=== PATIENT | male | born 1965 | race Caucasian/White ===

== ENCOUNTER 2021-03-12 11:54 | Observation (INO) | payer MEDICARE ==
[~2021-03-12] VITALS: Ht 193 cm; Wt 147.0 kg
[2021-03-12] VITALS (11 sets, daily range): BP systolic 107–123; BP diastolic 58–79
--- NOTE | 2021-03-12 12:33 | NUR ---
PT ESCORTED VIA WHEELCHAIR TO ROOM 9 FOR EVALUATION
[2021-03-12 12:47] LABS: HEMATOCRIT 23.1 % (39.0-50.0); IMMATURE GRANULOCYTES 0.1 % (0.0-5.0); MEAN CELL VOLUME 99.1 fL CALC (80.0-100.0); MEAN CORPUSCULAR HGB CONC 30.3 g/dL CAL (32.0-36.0); NEUT# 5.99 thou/uL (1.82-7.42); RED BLOOD COUNT 2.33 mill/uL (4.70-6.10); RED CELL DISTRI WIDTH 17.7 % (11.5-15.5)
[2021-03-12 12:59] LABS: ALBUMIN 3.9 g/dL (3.2-5.0); BILIRUBIN, TOTAL 0.7 mg/dL (0.0-1.4); CREATININE 4.8 mg/dL (0.7-1.3); MAGNESIUM 2.3 mg/dL (1.6-2.3); POTASSIUM 4.2 mmol/l (3.5-5.1); TOTAL PROTEIN 7.5 g/dL (6.3-8.2)
[2021-03-12 13:01] LABS: ACT PARTIAL THROMBO TIME 32.4 SECONDS (20.0-32.5); INTERNATIONAL NORMALIZED RATIO 1.1 RATIO (0.7-1.3); PROTHROMBIN TIME 11.6 SECONDS (9.0-12.5)
[2021-03-12] MEDS ORDERED: PLAVIX75 MG PO (13:07)
[2021-03-12] MEDS ORDERED: NORVASC5 M1 PO (13:08)
[2021-03-12] MEDS ORDERED: OMEPRAZOLE20 MG PO (13:09)
[2021-03-12] MEDS ORDERED: ASPIRIN 81 LOW81 MG (13:10)
[2021-03-12] MEDS ORDERED: NITROSTAT0.4 MG SL (13:11)
[2021-03-12] MEDS ORDERED: ELIQUIS5 MG PO (13:12)
[2021-03-12] MEDS ORDERED: METOPROLOL100 M1 PO (13:13)
[2021-03-12] MEDS ORDERED: TORSEMIDE20 M1 PO (13:13)
[2021-03-12] MEDS ORDERED: ISOSORB DIN20 MG PO (13:14)
[2021-03-12] MEDS ORDERED: METHADOSE10 MG/ML PO (14:23)
--- NOTE | 2021-03-12 17:46 | NUR ---
REPORT GIVEN TO PRIYANKA ICU 6
[2021-03-12 18:07] LABS: URINE BILIRUBIN - DIPSTICK NEGATIVE (NEGATIVE); URINE BLOOD DIPSTICK SMALL (NEGATIVE); URINE COLOR YELLOW; URINE GLUCOSE - DIPSTICK NEGATIVE (NEGATIVE); URINE KETONE NEGATIVE (NEGATIVE); URINE LEUK ESTERASE NEGATIVE (NEGATIVE); URINE NITRITE - DIPSTICK NEGATIVE (Negative); URINE PH 5.5 (4.5-8.0); URINE PROTEIN - DIPSTICK NEGATIVE (NEG-TRACE); URINE SPECIFIC GRAVITY 1.015; URINE UROBILINOGEN - DIPSTICK 0.2 E.U./dL (0.2)
--- NOTE | 2021-03-12 19:30 | NUR ---
admission assessment completed. denies distress. desk monitor shows sinus rhythm. #20 lfa saline lock. #20 rfa ns infusing @ kvo. po fluids restricted. voids per urinal. history obtained per pt & er record. fall precautions cont.
--- NOTE | 2021-03-12 19:55 | NUR ---
#2 unit blood began as ordered.
--- NOTE | 2021-03-12 22:01 | NUR ---
#2 unit blood infused.
--- NOTE | 2021-03-12 23:55 | NUR ---
eyes closed. no distress. social work therapist shows sinus kristine hr 50. cpap cont.
[2021-03-13 02:00] VITALS: BP 90/42
--- NOTE | 2021-03-13 02:00 | NUR ---
resting quietly. resps even & unlabored. cpap cont.
--- NOTE | 2021-03-13 03:30 | NUR ---
lab here. blood drawn.
[2021-03-13 04:00] VITALS: BP 117/72
[2021-03-13 04:15] LABS: HEMATOCRIT 25.2 % (39.0-50.0); HEMOGLOBIN 7.8 g/dl (14.0-18.0); IMMATURE GRANULOCYTES 0.1 % (0.0-5.0); MEAN CELL VOLUME 96.6 fL CALC (80.0-100.0); MEAN CORPUSCULAR HGB 29.9 pG CALC (26.0-32.0); NEUT# 6.07 thou/uL (1.82-7.42); RED BLOOD COUNT 2.61 mill/uL (4.70-6.10); RED CELL DISTRI WIDTH 18.4 % (11.5-15.5)
[2021-03-13 04:51] LABS: CREATININE 4.5 mg/dL (0.7-1.3); MAGNESIUM 2.2 mg/dL (1.6-2.3)
--- NOTE | 2021-03-13 06:00 | NUR ---
eyes closed. cpap conts.
[2021-03-13 06:16] VITALS: BP 118/70
[2021-03-13 07:00] VITALS: BP 119/72
--- NOTE | 2021-03-13 07:48 | NUR ---
PT REPORT RECEIVED, PT WAS RESTING QUIETLY WITH BIPAP ON, DENIES ANY COMPLAINTS AT THIS TIME, AWAKE/ALERT/O X3, VITAL SIGNS STABLE. STATES FEELS MUCH BETTER.
[2021-03-13 08:00] VITALS: BP 129/79
--- NOTE | 2021-03-13 08:40 | NUR ---
PT ADVISED DOCTOR THAT HE NEEDED TO BE DISCHARGED BY 930 TO MAKE IT TO HIS APPTS FOR HIS REFILL OF METHADONE. EXamined pt and decided pt could be discharge today. medications will be given and tetnus and pneumonia shots given. iv's d/c and discharge instructions given and pt voices understanding. pt to er waiting room per w/c , mother here for pickup
[2021-03-13 09:46] VITALS: BP 128/75
== END 2021-03-13 10:00 | disposition home or self-care (01) ==
LOC: ED 11:54 → ED-I 13:50 → ED 14:10 → ICU 14:11
PROVIDERS: ADMIT Internal Medicine; ATTEND Internal Medicine
PROC: 30233N1 Transfusion of Nonautologous Red Blood Cells into Peripheral Vein, Percutaneous Approach (ICD-10-PCS; principal; 2021-03-12)
PROC: 30233N1 Transfusion of Nonautologous Red Blood Cells into Peripheral Vein, Percutaneous Approach (ICD-10-PCS; 2021-03-12)
PROC: 3E02340 Introduction of Influenza Vaccine into Muscle, Percutaneous Approach (ICD-10-PCS; 2021-03-13)
PROC: 3E0234Z Introduction of Serum, Toxoid and Vaccine into Muscle, Percutaneous Approach (ICD-10-PCS; 2021-03-13)
DX: D64.9 Anemia, unspecified (principal); I13.0 Hypertensive heart and chronic kidney disease with heart failure and stage 1 through stage 4 chronic kidney disease, or unspecified chronic kidney disease; I50.9 Heart failure, unspecified; N18.9 Chronic kidney disease, unspecified; J44.9 Chronic obstructive pulmonary disease, unspecified; J96.11 Chronic respiratory failure with hypoxia; I25.10 Atherosclerotic heart disease of native coronary artery without angina pectoris; G47.33 Obstructive sleep apnea (adult) (pediatric); F11.20 Opioid dependence, uncomplicated; Z23 Encounter for immunization; Z95.5 Presence of coronary angioplasty implant and graft; Z20.822 Contact with and (suspected) exposure to COVID-19; Z99.81 Dependence on supplemental oxygen
CPT/HCPCS: P9016

== ENCOUNTER 2021-04-07 16:40 | Emergency (ER) | payer MEDICARE ==
[~2021-04-07] VITALS: Ht 193 cm; Wt 145.0 kg
[~2021-04-07 16:40] MED LIST: ASPIRIN 81 LOW81 MG; ELIQUIS5 MG PO; ISOSORB DIN20 MG PO; METHADOSE10 MG/ML PO; METOPROLOL100 M1 PO; NITROSTAT0.4 MG SL; NORVASC5 M1 PO; OMEPRAZOLE20 MG PO; PLAVIX75 MG PO; TORSEMIDE20 M1 PO
[2021-04-07 18:06] LABS: HEMATOCRIT 25.8 % (39.0-50.0); HEMOGLOBIN 7.9 g/dl (14.0-18.0); IMMATURE GRANULOCYTES 0.2 % (0.0-5.0); MEAN CELL VOLUME 99.6 fL CALC (80.0-100.0); MEAN CORPUSCULAR HGB 30.5 pG CALC (26.0-32.0); MEAN CORPUSCULAR HGB CONC 30.6 g/dL CAL (32.0-36.0); NEUT# 10.24 thou/uL (1.82-7.42); RED BLOOD COUNT 2.59 mill/uL (4.70-6.10); RED CELL DISTRI WIDTH 19.4 % (11.5-15.5)
[2021-04-07 18:13] LABS: ALBUMIN 3.9 g/dL (3.2-5.0); BILIRUBIN, TOTAL 0.9 mg/dL (0.0-1.4); POTASSIUM 4.2 mmol/l (3.5-5.1); TOTAL PROTEIN 7.9 g/dL (6.3-8.2)
[2021-04-07 18:26] LABS: CREATININE 5.1 mg/dL (0.7-1.3)
[2021-04-07 19:48] VITALS: BP 130/62
[2021-04-07] MEDS ORDERED: TERBINAFINE250 M1 PO (20:20)
[2021-04-07] MEDS ORDERED: CEPHALEXIN500 M1 PO (20:21)
[2021-04-07] MEDS ORDERED: [UNRECOGNIZED DRUG - OTHER] (20:27)
[2021-04-07] MEDS ORDERED: MUPIROCIN21 TOP (20:29)
[2021-04-07 20:48] VITALS: BP 127/81
[2021-04-07 21:48] VITALS: BP 120/74
[2021-04-07 22:00] VITALS: BP 120/74
== END 2021-04-07 22:00 | disposition home or self-care (01) ==
LOC: ED 16:40
PROVIDERS: Family Medicine
PROC: 30233N1 Transfusion of Nonautologous Red Blood Cells into Peripheral Vein, Percutaneous Approach (ICD-10-PCS; principal; 2021-04-07)
DX: D64.9 Anemia, unspecified (principal); R19.5 Other fecal abnormalities; I13.0 Hypertensive heart and chronic kidney disease with heart failure and stage 1 through stage 4 chronic kidney disease, or unspecified chronic kidney disease; I50.9 Heart failure, unspecified; E11.22 Type 2 diabetes mellitus with diabetic chronic kidney disease; N18.9 Chronic kidney disease, unspecified; J44.9 Chronic obstructive pulmonary disease, unspecified; Z95.5 Presence of coronary angioplasty implant and graft; Z89.421 Acquired absence of other right toe(s)
CPT/HCPCS: P9016; S0164

== ENCOUNTER → 2021-04-08 09:39 | Emergency (ER) | payer MEDICARE ==
[~2021-04-08 09:39] MED LIST changes: +CEPHALEXIN500 M1 PO; +MUPIROCIN21 TOP; +TERBINAFINE250 M1 PO; +[UNRECOGNIZED DRUG - OTHER]
== END | disposition left against medical advice (07) ==
LOC: ED 09:39 → LWOBS 09:39
DX: Z53.21 Procedure and treatment not carried out due to patient leaving prior to being seen by health care provider (principal)

== ENCOUNTER 2021-05-21 10:34 | Emergency (ER) | payer MEDICARE ==
[~2021-05-21] VITALS: Ht 193 cm; Wt 136.3 kg
[2021-05-21 11:23] LABS: HEMATOCRIT 31.1 % (39.0-50.0); IMMATURE GRANULOCYTES 0.1 % (0.0-5.0); MEAN CELL VOLUME 98.1 fL CALC (80.0-100.0); MEAN CORPUSCULAR HGB 31.2 pG CALC (26.0-32.0); MEAN CORPUSCULAR HGB CONC 31.8 g/dL CAL (32.0-36.0); NEUT# 6.76 thou/uL (1.82-7.42); RED BLOOD COUNT 3.17 mill/uL (4.70-6.10)
[2021-05-21 11:25] LABS: HEMOGLOBIN 9.9 g/dl (14.0-18.0)
[2021-05-21 11:43] LABS: ALBUMIN 3.8 g/dL (3.2-5.0); BILIRUBIN, TOTAL 0.3 mg/dL (0.0-1.4); CREATININE 2.4 mg/dL (0.7-1.3); POTASSIUM 3.9 mmol/l (3.5-5.1); TOTAL PROTEIN 7.8 g/dL (6.3-8.2)
[2021-05-21] MEDS ORDERED: KEFLEX500 MG PO (12:25)
[2021-05-21] MEDS ORDERED: BACTRIM DS1 TAB PO (12:25)
[2021-05-21 13:06] VITALS: BP 134/80
== END 2021-05-21 13:15 | disposition home or self-care (01) ==
LOC: ED 10:34
PROVIDERS: Emergency Medicine
DX: L03.031 Cellulitis of right toe (principal); L03.115 Cellulitis of right lower limb; I10 Essential (primary) hypertension; Z95.5 Presence of coronary angioplasty implant and graft; Z98.84 Bariatric surgery status; Z89.421 Acquired absence of other right toe(s)

== ENCOUNTER 2021-12-16 10:50 | Emergency (ER) | payer MEDICARE ==
[~2021-12-16] VITALS: Ht 193 cm; Wt 127.3 kg
[~2021-12-16 10:50] MED LIST changes: +BACTRIM DS1 TAB PO; +KEFLEX500 MG PO
[2021-12-16 12:45] LABS: HEMATOCRIT 34.5 % (39.0-50.0); HEMOGLOBIN 11.2 g/dl (14.0-18.0); IMMATURE GRANULOCYTES 0.4 % (0.0-5.0); MEAN CELL VOLUME 98.3 fL CALC (80.0-100.0); MEAN CORPUSCULAR HGB 31.9 pG CALC (26.0-32.0); MEAN CORPUSCULAR HGB CONC 32.5 g/dL CAL (32.0-36.0); NEUT# 9.81 thou/uL (1.82-7.42); RED BLOOD COUNT 3.51 mill/uL (4.70-6.10); RED CELL DISTRI WIDTH 14.4 % (11.5-15.5)
[2021-12-16 12:59] LABS: ALBUMIN 4.2 g/dL (3.2-5.0); CREATININE 2.6 mg/dL (0.7-1.3); POTASSIUM 3.9 mmol/l (3.5-5.1)
[2021-12-16 13:02] LABS: BILIRUBIN, TOTAL 0.5 mg/dL (0.0-1.4)
[2021-12-16] MEDS ORDERED: PREDNISONE10 MG PO (14:22)
[2021-12-16 14:55] VITALS: BP 159/95
== END 2021-12-16 14:56 | disposition home or self-care (01) ==
LOC: ED 10:50
PROVIDERS: Nurse Practitioner
DX: M25.572 Pain in left ankle and joints of left foot (principal); M25.571 Pain in right ankle and joints of right foot; I10 Essential (primary) hypertension; Z95.5 Presence of coronary angioplasty implant and graft; M79.661 Pain in right lower leg; M79.662 Pain in left lower leg; Z79.01 Long term (current) use of anticoagulants; Z79.891 Long term (current) use of opiate analgesic

== ENCOUNTER 2022-02-13 10:52 | Inpatient (IN) | payer MEDICARE ==
[2022-02-13] VITALS (23 sets, daily range): BP systolic 130–149; BP diastolic 78–101
[~2022-02-13] VITALS: Ht 193 cm; Wt 160.8 kg
[~2022-02-13 10:52] MED LIST changes: +PREDNISONE10 MG PO
--- NOTE | 2022-02-13 10:55 | NUR ---
PATIENT ESCORTED BACK TO ROOM IN NAD. PROVIDER NOTIFIED OF PATIENT STATUS.
[2022-02-13 11:39] LABS: HEMATOCRIT 31.8 % (39.0-50.0); HEMOGLOBIN 10.3 g/dl (14.0-18.0); IMMATURE GRANULOCYTES 0.6 % (0.0-5.0); MEAN CELL VOLUME 96.1 fL CALC (80.0-100.0); MEAN CORPUSCULAR HGB 31.1 pG CALC (26.0-32.0); MEAN CORPUSCULAR HGB CONC 32.4 g/dL CAL (32.0-36.0); NEUT# 10.63 thou/uL (1.82-7.42); RED BLOOD COUNT 3.31 mill/uL (4.70-6.10); RED CELL DISTRI WIDTH 16.1 % (11.5-15.5)
[2022-02-13 11:53] LABS: ALBUMIN 3.8 g/dL (3.2-5.0); BILIRUBIN, TOTAL 0.3 mg/dL (0.0-1.4); CREATININE 2.5 mg/dL (0.7-1.3); POTASSIUM 3.3 mmol/l (3.5-5.1); TOTAL PROTEIN 7.2 g/dL (6.3-8.2)
[2022-02-13] MEDS ORDERED: PREDNISONE10 MG PO (13:18)
[2022-02-13] MEDS ORDERED: ELIQUIS5 MG PO (13:19)
[2022-02-13] MEDS ORDERED: LOSARTAN POTASS25 MG PO (13:21)
[2022-02-13] MEDS ORDERED: ISOSORB MONO30 MG PO (13:22)
[2022-02-13] MEDS ORDERED: OMEPRAZOLE DR40 MG (13:23)
[2022-02-13] MEDS ORDERED: CALCITRIOL0.25 MC1 PO (13:24)
--- NOTE | 2022-02-13 14:03 | NUR ---
PT HAS HAD URINE OUTPUT OF 1400 Ml'S TO URINAL.
--- NOTE | 2022-02-13 15:37 | NUR ---
PT HAS HAD URINE OUTPUT OF 500 ML'S.
--- NOTE | 2022-02-13 17:00 | NUR ---
PT HAD URINE OUTPUT OF 425 ML'S.
--- NOTE | 2022-02-13 17:25 | NUR ---
Admission Note Report Given to: EVA CARTER Transported by: Stretcher Transported with: Nurse Patent IV O2 @ 2L/min via nc Prepress Operator Location: [facility] [place] 268
--- NOTE | 2022-02-13 17:55 | NUR ---
PT RESTING IN SEMI FOWLERS POSITION.ASSESSMENT AND VS COMPLETED. PT HEART RHYTHM ON TELE RESPIRATIONS ON 2L OF OXYGEN. IV SITE TO LFA. S.L. PT BOWEL SOUNDS ACTIVE. PT EDEMA TO LOWER EXTREMITIES. PT C/O OF HUNGER ORDERS TO BE PUT IN BY PROVIDER. PT DENIES ADDITIONAL NEEDS AT THE TIME ALL SAFETY PRECAUTIONS IN PLACE CALL LIGHT INREACH.
--- NOTE | 2022-02-13 19:00 | NUR ---
BEDSIDE SHIFT REPORT COMPLETE. PATIENT LAYING IN BED WATCHING TV.
--- NOTE | 2022-02-13 20:13 | NUR ---
PATIENT ALERT AND ORIENTED X4. ASSESSMENT COMPLETE. RESTING IN BED WATCHING TV. C/O BACK AND NECK PAIN 08/06. NO FURTHER CONCERNS EXPRESSED. CALL LIGHT WITHIN REACH.
--- NOTE | 2022-02-13 20:54 | NUR ---
PATIENT C/O BACK AND NECK PAIN 08/06, PHYSICIAN NOTIFIED. TRAMADOL 50MG ORDERED AND PRESENTED TO PATIENT, PATIENT REFUSED MEDICATION.
[2022-02-14] VITALS (8 sets, daily range): BP systolic 117–150; BP diastolic 64–91
--- NOTE | 2022-02-14 00:45 | NUR ---
RESTING QUIETLY EYES CLOSED, CPAP IN USE. NO DISTRESS NOTED. CALL LIGHT WITHIN REACH.
[2022-02-14 05:23] LABS: HEMATOCRIT 30.9 % (39.0-50.0); IMMATURE GRANULOCYTES 0.6 % (0.0-5.0); MEAN CELL VOLUME 97.5 fL CALC (80.0-100.0); MEAN CORPUSCULAR HGB 31.5 pG CALC (26.0-32.0); MEAN CORPUSCULAR HGB CONC 32.4 g/dL CAL (32.0-36.0); NEUT# 8.24 thou/uL (1.82-7.42); RED BLOOD COUNT 3.17 mill/uL (4.70-6.10); RED CELL DISTRI WIDTH 16.1 % (11.5-15.5)
[2022-02-14 05:39] LABS: ALBUMIN 3.4 g/dL (3.2-5.0); BILIRUBIN, TOTAL 0.4 mg/dL (0.0-1.4); CREATININE 2.4 mg/dL (0.7-1.3); POTASSIUM 3.6 mmol/l (3.5-5.1); TOTAL PROTEIN 6.3 g/dL (6.3-8.2)
[2022-02-14 06:11] LABS: TSH, 3RD GENERATION 0.69 uIU/mL (0.47 - 4.68)
--- NOTE | 2022-02-14 07:00 | NUR ---
RECEIVE REPORT FROM CLAUDIA CARTER.
--- NOTE | 2022-02-14 08:00 | NUR ---
PATIENT ALERT AND ORIENTED X3. RESTING STABLE IN BED AT THIS TIME. ASSESSMENTE HEAD-TO TOE COMPLETE. PATIENT IS EDUCATED ABOUD MEDICATIONS, PAIN MANAGEMENT AND NURSING PLAN FOR TODAY. PATIENT REFER UNSERSTAND. SAFETY AND FALL PRECAUTIONS IN PLACE. CALL LIGHT WITHIN IN REACH. BEFORE HE LEFT OR THE
--- NOTE | 2022-02-14 11:18 | NUR ---
CONFIRMED A PHYSICIAN CONSULT WITH THE [facility]. I SPOKE WITH HUANG AT 1118 HRS.
--- NOTE | 2022-02-14 11:30 | NUR ---
Discharge instructions given. Patient verbalizes understanding of same. Discharged in stable condition via Wheelchair to Home with staff. All belongings sent with pt.
--- NOTE | 2022-02-14 12:28 | NUR ---
PT RESTING IN BED. STATES NO PAIN. TELE MONITOR IN PLACE. CONTINOUS MONITORING FALL/SAFTEY PRECAUTION IN PLACE, CALL LIGHT WITHIN REACH.
--- NOTE | 2022-02-14 16:39 | NUR ---
Pt in bed watching tv. A&O x 3. Lung sounds clear and unlabored breathing. Tylenol given for fever later re-assess pt states fever came down. Will continue to monitor. bed alarm on for fall precautions.
--- NOTE | 2022-02-14 19:17 | NUR ---
BEDSIDE SHIFT REPORT COMPLETE. PATIENT RESTING QUIETLY. CALL LIGHT WITHIN REACH.
--- NOTE | 2022-02-14 20:27 | NUR ---
SITTING UP IN BED WATCHING TV. ASSESSMENT COMPLETE. NO DISTRESS NOTED AT THIS TIME. SCHEDULED DOSE OF MORPHINE GIVEN FOR PAIN. CALL LIGHT WITHIN REACH INSTRUCTED TO CALL FOR ASSISTANCE.
[2022-02-15] VITALS: BP 144/86
--- NOTE | 2022-02-15 00:36 | NUR ---
RESTING, EYES CLOSED; CPAP IN USE. NO DISTRESS NOTED, CALL LIGHT WITHIN REACH.
[2022-02-15 04:00] VITALS: BP 144/94
--- NOTE | 2022-02-15 04:34 | NUR ---
RESTING IN BED, CPAP IN PLACE. DENIES PAIN AT THIS TIME. NO DISTRESS NOTED.
[2022-02-15 05:09] LABS: HEMOGLOBIN 9.5 g/dl (14.0-18.0); IMMATURE GRANULOCYTES 0.5 % (0.0-5.0); MEAN CELL VOLUME 98.4 fL CALC (80.0-100.0); MEAN CORPUSCULAR HGB 31.1 pG CALC (26.0-32.0); MEAN CORPUSCULAR HGB CONC 31.7 g/dL CAL (32.0-36.0); NEUT# 6.36 thou/uL (1.82-7.42); RED BLOOD COUNT 3.05 mill/uL (4.70-6.10); RED CELL DISTRI WIDTH 16.1 % (11.5-15.5)
[2022-02-15 05:30] LABS: ALBUMIN 3.5 g/dL (3.2-5.0); CREATININE 2.8 mg/dL (0.7-1.3); POTASSIUM 3.5 mmol/l (3.5-5.1); TOTAL PROTEIN 6.6 g/dL (6.3-8.2)
[2022-02-15 05:32] LABS: BILIRUBIN, TOTAL 0.1 mg/dL (0.0-1.4)
[2022-02-15 06:30] VITALS: BP 141/75
--- NOTE | 2022-02-15 07:45 | NUR ---
PT IS SITTING UP UCHE BED, WATCHING TV. PT IS A&OX3, PT FOLLOWS COMMANDS AND HAS NO C/O AT THIS TIME. PT IS AMBULATORY WITH STEADY GAIT, PT HAS NOTATED EDEMA TO BLE, PT EDUCATED TO ELEVATE WHEN NOT WALKING OOB IN ROOM. NAD, VS ASSESSED. PT HAS CALL LIGHT NEAR AND WILLM MAKE HIS NEEDS KNOWN, WILL CONTINUE TO MONITOR.
[2022-02-15 10:30] VITALS: BP 126/75
--- NOTE | 2022-02-15 12:45 | NUR ---
PT IS SITTING UP ON SIDE OF BED, PT HAS NO COMPLAINTS AT THIS TIME. PT HAS CALL LIGHT NEAR AND WILL CALL IF IN NEED. ALL PT NEEDS HAVE BEEN ADDRESSED.
[2022-02-15 14:43] VITALS: BP 148/95
[2022-02-15 19:14] VITALS: BP 149/92
--- NOTE | 2022-02-15 19:25 | NUR ---
RECIEVED REPORT ON PT. PT IN BED SITTING IN HIGH FOWLERS POSITION. DENIES ANY PAIN OR DISCOMFORT. OXYGEN IN PLACE VIA NASAL CANULA. PT WATCHING VIDEOS ON THEIR LAPTOP. ALERT AND ORIENTATED X3. WOUND IS DRESSED WITH SOCKS OVER DRESSINGS. PT DENIES ANY NEEDS AT THIS TIME. ALL SAFETY PRECAUTIONS IN PLACE AT THIS TIME
[2022-02-16] VITALS (10 sets, daily range): BP systolic 131–159; BP diastolic 80–96
--- NOTE | 2022-02-16 00:15 | NUR ---
PT IN BED SLEEPING. IV SITE PATENT. DENIES ANY NEEDS. TELE IN PLACE. AL SAFETY PRECAUTIONS IN PLACE AT THIS TIME
--- NOTE | 2022-02-16 04:00 | NUR ---
PT IN BED SLEEPING. BREATHING APPEARS EVEN AND NON LABORED. DENIES ANY NEEDS AT THIS TIME. O2 AND TELE IN PLACE AT THIS TIME. ALL SAFETY PRECAUTIONS IN PLACE AT THIS TIME
[2022-02-16 05:15] LABS: BASO% 0.3 % (0-3); EOS% 1.5 % (0-8); HEMATOCRIT 28.5 % (39.0-50.0); HEMOGLOBIN 9.2 g/dl (14.0-18.0); IMMATURE GRANULOCYTES 0.7 % (0.0-5.0); LYMPH% 13.9 % (15-41); MEAN CELL VOLUME 96.9 fL CALC (80.0-100.0); MEAN CORPUSCULAR HGB 31.3 pG CALC (26.0-32.0); MEAN CORPUSCULAR HGB CONC 32.3 g/dL CAL (32.0-36.0); MONO% 4.8 % (2-13); NEUT# 5.9 thou/uL (1.82-7.42); NEUT% 78.8 % (42-76); RED BLOOD COUNT 2.94 mill/uL (4.70-6.10); RED CELL DISTRI WIDTH 15.8 % (11.5-15.5)
[2022-02-16 05:32] LABS: ALBUMIN 3.3 g/dL (3.2-5.0); CREATININE 2.7 mg/dL (0.7-1.3); POTASSIUM 3.4 mmol/l (3.5-5.1); TOTAL PROTEIN 6.4 g/dL (6.3-8.2)
[2022-02-16 05:39] LABS: BILIRUBIN, TOTAL 0.3 mg/dL (0.0-1.4)
--- NOTE | 2022-02-16 07:50 | NUR ---
PT RESTING IN HIGH FOWLERS POSITION. ASSESSMENT AND VS COMPLETED HEART RHYTHM ON TELE. RESPIRATIONS ON 2L NC.PT IV SITE NOTED TO RFA. PT DENIES ADDITIONAL NEEDS AT THE TIME ALL SAFETY PRECAUTIONS IN PLACE CALL LIGHT INREACH.
--- NOTE | 2022-02-16 16:00 | NUR ---
PT RESTING PT DENIES ADDITIONAL NEEDS AT THE TIME.
--- NOTE | 2022-02-16 18:45 | NUR ---
RECEIVED REPORT FROM JEANMARIE LARSEN.
--- NOTE | 2022-02-16 20:05 | NUR ---
PT SITTING ON SIDE OF BED, TALKING ON CELLPHONE: A&O X3. EVEN AND UNLABORED RESPIRATIONS; DIMINISHED LUNG SOUNDS THROUGHTOUT. O2 @ 2L VIA NASAL CANNULA IN PLACE. TELEMETRY IN PLACE. IV SITE FLUSHED: #18G LEFT FA, HEALTHY AND PATENT. ACTIVE BOWEL SOUNDS X4 QUADRANTS. C-PAP FROM HOME AT BEDSIDE, PT STATES HE WILL USE IT BEFORE GOING TO SLEEP, AND NEED NO ASSISTANCE. SAFETY PRECAUTIONS IN PLACE WITH CALL LIGHT IN REACH.
--- NOTE | 2022-02-17 00:28 | NUR ---
PT RESTING WITH EYES CLOSED. C-PAP IN PLACE. NO DISTRESS OR PAIN NOTED. SAFETY PRECAUTIONS IN PLACE WITH CALL LIGHT IN REACH.
--- NOTE | 2022-02-17 04:23 | NUR ---
PT RESTING WITH EYES CLOSED. NO DISTRESS OR PAIN NOTED. C-PAP IN PLACE. IV SITE HEALTHY AND PATENT. NO NEEDS AT THIS TIME. SAFETY PRECAUTIONS IN PLACE WITH CALL LIGHT IN REACH.
[2022-02-17 04:38] VITALS: BP 150/88
[2022-02-17 05:55] LABS: BASO% 0.1 % (0-3); EOS% 0.6 % (0-8); HEMATOCRIT 27.9 % (39.0-50.0); HEMOGLOBIN 9.4 g/dl (14.0-18.0); IMMATURE GRANULOCYTES 0.2 % (0.0-5.0); LYMPH% 9.1 % (15-41); MEAN CELL VOLUME 95.2 fL CALC (80.0-100.0); MEAN CORPUSCULAR HGB 32.1 pG CALC (26.0-32.0); MEAN CORPUSCULAR HGB CONC 33.7 g/dL CAL (32.0-36.0); NEUT# 7.71 thou/uL (1.82-7.42); RED BLOOD COUNT 2.93 mill/uL (4.70-6.10); RED CELL DISTRI WIDTH 15.6 % (11.5-15.5)
[2022-02-17 06:12] LABS: ALBUMIN 3.7 g/dL (3.2-5.0); BILIRUBIN, TOTAL 0.3 mg/dL (0.0-1.4); CREATININE 2.4 mg/dL (0.7-1.3); POTASSIUM 3.5 mmol/l (3.5-5.1); TOTAL PROTEIN 6.8 g/dL (6.3-8.2)
[2022-02-17 06:45] VITALS: BP 143/81
--- NOTE | 2022-02-17 06:45 | NUR ---
RECEIVED CALL FROM ER NOTIFYING PT WAS V-TACH; EKG WAS PERFORMED. PT IS ASYMPTOMATIC. DR DHALIWAL NOFIFIED OF SAME AND RESULTS SENT. MAG 2G IV SENT TO PHARMACY ORDERED PER DR. DHALIWAL AND STOP ANY MEDS THAT CAN PROLONG QT. SAFETY PRECAUTIONS IN PLACE AND CALL LIGHT IN REACH.
--- NOTE | 2022-02-17 08:00 | NUR ---
GOT REPORT FROM CULL GRADER NURSE. PATIENT ASSESSED. AOX4. PATIENT IS SITTING UP ON THE SIDE OF BED EATING BF. PATIENT HAS NO COMPLAINTS AT THIS TIME. PATIENT HAS CALL LIGHT AND BEDSIDE TABLE WITH IN REACH. ADVISED TO CALL IF NEEDING ANYTHING. PATIENT VERBALIZED UNDERSTANDING.
--- NOTE | 2022-02-17 09:54 | NUR ---
O2 SAT ON 2L 97%
[2022-02-17 10:49] VITALS: BP 134/78
--- NOTE | 2022-02-17 12:00 | NUR ---
PATIENT IN BED RESTING. NO COMPLAINTS OR CONCERNS AT THIS TIME. CALL LIGHT AND BEDSIDE TABLE WITH IN REACH. ADVISED TO CALL IF NEEDING ANYTHING
[2022-02-17 15:03] VITALS: BP 139/100
--- NOTE | 2022-02-17 16:00 | NUR ---
PATIENT IN BED RESTING. NO COMPLAINTS OR CONCERNS AT THIS TIME. CALL LIGHT AND BEDSIDE TABLE WITH IN REACH. ADVISED TO CALL IF NEEDING ANYTHING
[2022-02-17 19:15] VITALS: BP 109/53
--- NOTE | 2022-02-17 22:18 | NUR ---
PATIENT SITTING ON SIDE OF BED WEARING 2L O2 VIA NC. PATIENT DENIES ANY SOB, NO DYSPNEA OBSERVED AT THIS TIME. SAFETY PRECAUTIONS IN PLACE, CALL LIGHT IN REACH.
[2022-02-18 04:24] VITALS: BP 120/68
[2022-02-18 06:02] LABS: BASO% 0.3 % (0-3); HEMATOCRIT 28.2 % (39.0-50.0); HEMOGLOBIN 9.3 g/dl (14.0-18.0); IMMATURE GRANULOCYTES 0.3 % (0.0-5.0); LYMPH% 11.7 % (15-41); MEAN CELL VOLUME 96.2 fL CALC (80.0-100.0); MEAN CORPUSCULAR HGB 31.7 pG CALC (26.0-32.0); MONO% 4.3 % (2-13); NEUT# 8.11 thou/uL (1.82-7.42); NEUT% 82.4 % (42-76); RED BLOOD COUNT 2.93 mill/uL (4.70-6.10); RED CELL DISTRI WIDTH 15.5 % (11.5-15.5)
[2022-02-18 06:28] LABS: ALBUMIN 3.4 g/dL (3.2-5.0); BILIRUBIN, TOTAL 0.3 mg/dL (0.0-1.4); CREATININE 2.3 mg/dL (0.7-1.3); MAGNESIUM 2.3 mg/dL (1.6-2.3); POTASSIUM 3.5 mmol/l (3.5-5.1); TOTAL PROTEIN 6.4 g/dL (6.3-8.2)
[2022-02-18 07:24] VITALS: BP 147/92
[2022-02-18 07:55] VITALS: BP 142/69; BP 147/82
[2022-02-18 08:54] VITALS: BP 147/82
--- NOTE | 2022-02-18 09:57 | NUR ---
PT RESTING IN HIGH FREIRE POSITION. A/OX3 ASSESSMENT AND VS COMPLETED. HEART RHYTHM ON TELE.RESPIRAITONS ONOXYGEN . PT ROOMS OXYGEN ON AND OFF. PT TO GO HOME WITH OXYGEN. IV SITE NOTED. PT DENIES ADDITIONAL NEEDS OTHER THAN POSSIBLE STOOL SOFTNER.
--- NOTE | 2022-02-18 12:12 | NUR ---
POSSIBLE DC TODAY PT RESTING IN HIGH FOWLERS POSITION. ABX INFUSING.
[2022-02-18] MEDS ORDERED: LOPRESSOR25 MG PO (12:34)
[2022-02-18] MEDS ORDERED: LASIX 40 MG TAB40 MG PO (12:34)
[2022-02-18] MEDS ORDERED: LORTAB 1010 MG PO (12:34)
[2022-02-18] MEDS ORDERED: CARDIZEM CD120 MG PO (12:34)
--- NOTE | 2022-02-18 14:15 | NUR ---
Discharge instructions given. Patient verbalizes understanding of same. Discharged in stable condition via Wheelchair to Home with . All belongings sent with pt. IV REMOVED TELE REMOVED,
== END 2022-02-18 14:13 | disposition home health service (06) | DRG 871 ==
LOC: ED 10:52 → ED-I 13:38 → ED 13:52 → MS2 13:53 → ED-I 15:21 → ED 15:21 → MS2 15:22
PROVIDERS: Family Medicine; Nurse Practitioner Family; ADMIT Internal Medicine; ATTEND Internal Medicine
PROC: 0JBR3ZZ Excision of Left Foot Subcutaneous Tissue and Fascia, Percutaneous Approach (ICD-10-PCS; principal; 2022-02-14)
PROC: 0JBQ3ZZ Excision of Right Foot Subcutaneous Tissue and Fascia, Percutaneous Approach (ICD-10-PCS; 2022-02-14)
DX: A41.9 Sepsis, unspecified organism (principal); I50.33 Acute on chronic diastolic (congestive) heart failure; J18.9 Pneumonia, unspecified organism; J96.01 Acute respiratory failure with hypoxia; J44.0 Chronic obstructive pulmonary disease with (acute) lower respiratory infection; I13.0 Hypertensive heart and chronic kidney disease with heart failure and stage 1 through stage 4 chronic kidney disease, or unspecified chronic kidney disease; I47.20 Ventricular tachycardia, unspecified; N18.4 Chronic kidney disease, stage 4 (severe); R65.20 Severe sepsis without septic shock; E11.621 Type 2 diabetes mellitus with foot ulcer; L97.522 Non-pressure chronic ulcer of other part of left foot with fat layer exposed; L97.512 Non-pressure chronic ulcer of other part of right foot with fat layer exposed; E11.22 Type 2 diabetes mellitus with diabetic chronic kidney disease; D63.1 Anemia in chronic kidney disease; E11.40 Type 2 diabetes mellitus with diabetic neuropathy, unspecified; I25.10 Atherosclerotic heart disease of native coronary artery without angina pectoris; E66.01 Morbid (severe) obesity due to excess calories; L84 Corns and callosities; G89.4 Chronic pain syndrome; G47.33 Obstructive sleep apnea (adult) (pediatric); F17.210 Nicotine dependence, cigarettes, uncomplicated; Z98.84 Bariatric surgery status; Z95.5 Presence of coronary angioplasty implant and graft; Z86.14 Personal history of Methicillin resistant Staphylococcus aureus infection; Z79.891 Long term (current) use of opiate analgesic; Z79.52 Long term (current) use of systemic steroids; Z20.822 Contact with and (suspected) exposure to COVID-19
CPT/HCPCS: J3475

== ENCOUNTER 2022-02-27 22:54 | Inpatient (IN) | payer MEDICARE ==
[~2022-02-27] VITALS: Ht 175.3 cm; Wt 165.0 kg
[~2022-02-27 22:54] MED LIST changes: +CALCITRIOL0.25 MC1 PO; +CARDIZEM CD120 MG PO; +ISOSORB MONO30 MG PO; +LASIX 40 MG TAB40 MG PO; +LOPRESSOR25 MG PO; +LORTAB 1010 MG PO; +LOSARTAN POTASS25 MG PO; +OMEPRAZOLE DR40 MG
[2022-02-27 23:00] VITALS: BP 130/103
[2022-02-27 23:16] VITALS: BP 118/65
[2022-02-27 23:16] LABS: BASO% 0.3 % (0-3); EOS% 0.2 % (0-8); HEMATOCRIT 33.3 % (39.0-50.0); HEMOGLOBIN 10.2 g/dl (14.0-18.0); IMMATURE GRANULOCYTES 0.5 % (0.0-5.0); LYMPH% 16.1 % (15-41); MEAN CELL VOLUME 96.5 fL CALC (80.0-100.0); MEAN CORPUSCULAR HGB 29.6 pG CALC (26.0-32.0); MEAN CORPUSCULAR HGB CONC 30.6 g/dL CAL (32.0-36.0); MONO% 5.3 % (2-13); NEUT# 7.87 thou/uL (1.82-7.42); NEUT% 77.6 % (42-76); RED BLOOD COUNT 3.45 mill/uL (4.70-6.10)
[2022-02-27 23:24] VITALS: BP 127/68
[2022-02-27 23:31] VITALS: BP 113/63
[2022-02-27 23:42] LABS: ALBUMIN 3.5 g/dL (3.2-5.0); BILIRUBIN, TOTAL 0.2 mg/dL (0.0-1.4); CREATININE 3.1 mg/dL (0.7-1.3); TOTAL PROTEIN 6.7 g/dL (6.3-8.2)
[2022-02-27 23:42] LABS: URINE BILIRUBIN - DIPSTICK NEGATIVE (NEGATIVE); URINE BLOOD DIPSTICK MODERATE (NEGATIVE); URINE COLOR YELLOW; URINE GLUCOSE - DIPSTICK NEGATIVE (NEGATIVE); URINE KETONE NEGATIVE (NEGATIVE); URINE LEUK ESTERASE NEGATIVE (NEGATIVE); URINE PH 5.5 (4.5-8.0); URINE PROTEIN - DIPSTICK 100 mg/dL (NEG-TRACE); URINE SPECIFIC GRAVITY >=1.030; URINE UROBILINOGEN - DIPSTICK 0.2 E.U./dL (0.2)
[2022-02-27 23:46] VITALS: BP 95/52
[2022-02-27 23:48] LABS: URINE NITRITE - DIPSTICK NEGATIVE (Negative)
[2022-02-27 23:50] LABS: URINE AMORPH SEDIMENT FEW hpf (NONE-FER); URINE BACTERIA FEW hpf; URINE MUCUS FEW hpf (NONE-FEW); URINE SQUAMOUS EPITHELIAL CELL FEW EPI/hpf (0-FEW)
[2022-02-27 23:51] LABS: POTASSIUM 5.1 mmol/l (3.5-5.1)
[2022-02-28] VITALS (71 sets, daily range): BP systolic 81–164; BP diastolic 44–96
--- NOTE | 2022-02-28 01:27 | NUR ---
REPORT CALLED TO LATONIA CARTER.
--- NOTE | 2022-02-28 01:45 | NUR ---
REPORT AND SBAR RECIEVED FROM ED ON VENT, 100% FIO2, RATE 28, PEEP 10, TV 500, PROPOFOL AT 2MCG AND PATIENT IS RESTING. LEVO AT 8MCG/MIN, BUT TURNED OFF BECAUSE BP WAS SYS 130S. PUPILS ARE PERRLA, 3MM BILAT, ET TUBE IN PLACE AND 25CC AT THE LIP. BILAT BREATH SOUNDS, DIMINISHED BASES IN THE LUNGS. NO CRACKLES. OG IN PLACE AND TAPED TO ET TUBE. HOOKED UP TO LOW INTERMITENT SUCTION, BUT NO GI FLUIDS OUT. ALSO NO SECRETIONS OUT OF IN LINE SUCTION. WEAK GAG REFLEX, WITH MINIMAL ORAL SECRETIONS SUCTIONED. TEMP WAS 95.5 DEGREES C, SO WARM BLANKETS PUT ON PATIENT SINCE NO BEAR HUGGER AVAILABLE. I WAS PUTTING ON WARM BLANKETS PATIENT WOKE UP RESPONDED TO HIS NAME AND NODDED HEAD AND ANSWERED YES AND NO APPROPRIATELY TO ALL QUESTIONS ASKED TO PT. PT IS ALERT AND ORIENTED. PT VSS OFF OF LEVO AND ON 50MCG OF PROPOFOL AT THIS TIME. PT IS NAD.
[2022-02-28 05:29] LABS: BASO% 0.1 % (0-3); HEMATOCRIT 29.1 % (39.0-50.0); HEMOGLOBIN 9.3 g/dl (14.0-18.0); IMMATURE GRANULOCYTES 0.4 % (0.0-5.0); LYMPH% 1.8 % (15-41); MEAN CELL VOLUME 95.7 fL CALC (80.0-100.0); MEAN CORPUSCULAR HGB 30.6 pG CALC (26.0-32.0); MONO% 1.1 % (2-13); NEUT# 9.83 thou/uL (1.82-7.42); NEUT% 96.6 % (42-76); RED BLOOD COUNT 3.04 mill/uL (4.70-6.10); RED CELL DISTRI WIDTH 16.2 % (11.5-15.5)
[2022-02-28 05:44] LABS: CREATININE 3.5 mg/dL (0.7-1.3)
[2022-02-28 05:48] LABS: POTASSIUM 5.5 mmol/l (3.5-5.1)
--- NOTE | 2022-02-28 07:00 | NUR ---
RN at bedside for change of shift report. Pt. resting with eyes closed on ventilator support; respirations even and unlabored with no signs of distress noted at this time. Continuous monitoring in place; will continue to monitor.
--- NOTE | 2022-02-28 12:25 | NUR ---
RN at bedside; pt resting with eyes closed sedated; respirations even and unlabored with no signs of acute distress noted at this time. Continuous monitoring in place.
--- NOTE | 2022-02-28 14:00 | NUR ---
RN at bedside. Pt resting well with eyes closed, respirations even and unlabored. Pt responded to voice with nodding/shaking of head; appears relaxed with no signs of anxiety noted at this time. Sedation for ventilator support in use; pt appears to be tolerating well. Will continue to closely monitor.
--- NOTE | 2022-02-28 23:07 | NUR ---
asses pt, pt intubated, a air leak is noted despite intervention respiratory at bed side, a order for CXR place for ETT placement, SPo2 98, HR of 75, propofol tiltrade to 50, PT RASS -1, will continue to monitor the pt closely.
[2022-03-01] VITALS (37 sets, daily range): BP systolic 113–141; BP diastolic 66–90
--- NOTE | 2022-03-01 00:22 | NUR ---
ER dOCTOR RENAE notifed regarding ETT result not seen placement by the radialogist despite CXS complited, Doctor came evaluate the patient and re-intubate at bed side with a ETT of 8, respiratory and I helped the doctor during the procedure. OP RN CCRN.
[2022-03-01 05:24] LABS: HEMATOCRIT 25.3 % (39.0-50.0); HEMOGLOBIN 8.2 g/dl (14.0-18.0); IMMATURE GRANULOCYTES 0.2 % (0.0-5.0); LYMPH% 5.6 % (15-41); MEAN CELL VOLUME 94.4 fL CALC (80.0-100.0); MEAN CORPUSCULAR HGB 30.6 pG CALC (26.0-32.0); MEAN CORPUSCULAR HGB CONC 32.4 g/dL CAL (32.0-36.0); MONO% 4.2 % (2-13); NEUT# 3.89 thou/uL (1.82-7.42); RED BLOOD COUNT 2.68 mill/uL (4.70-6.10); RED CELL DISTRI WIDTH 15.5 % (11.5-15.5)
[2022-03-01 05:45] LABS: ALBUMIN 3.2 g/dL (3.2-5.0); BILIRUBIN, TOTAL 0.2 mg/dL (0.0-1.4); TOTAL PROTEIN 6.4 g/dL (6.3-8.2)
[2022-03-01 05:57] LABS: CREATININE 4.9 mg/dL (0.7-1.3)
--- NOTE | 2022-03-01 05:58 | NUR ---
CRITICAL ABG result given from RT will notified provider regarding his PH, and HCO3
--- NOTE | 2022-03-01 06:17 | NUR ---
notified Dr. Otoole regarding abnormal result ,PH,HCO3,PLT,NA, GFR and CA, will make intervention when round this morning
--- NOTE | 2022-03-01 07:10 | NUR ---
miguel a jaramillo placed for low pt temp
--- NOTE | 2022-03-01 07:50 | NUR ---
PT WAKES EASILY TO VOICE, NO GRIMACE OR SIGN OF PAIN
--- NOTE | 2022-03-01 10:06 | NUR ---
ORDERED A P-500 AIR MATTRESS FOR THIS PATIENT PER KELLEY TEJEDA. I SPOKE WITH BRUNA AT [facility] AT 1006 HRS. CONFIRMATION # [id number].
--- NOTE | 2022-03-01 10:40 | NUR ---
spoke with Dr Guzman, video visit, he placed recommendations in chart
--- NOTE | 2022-03-01 11:53 | NUR ---
PRELIMINARY BC SHOWS GRAM (+) COCCI IN 1/[address] RESULTS REPORT[address] DHALIWAL. VANCOMYCIN 1,500MG IV Q48H ADDED. WILL FOLLOW UP WHEN FINAL RESULTS AVAILABLE.
--- NOTE | 2022-03-01 12:00 | NUR ---
Dr Magana has been in to place RSC triple lumen central line, pt kimberly well
--- NOTE | 2022-03-01 12:50 | NUR ---
portable chest x-ray done to verify placement
--- NOTE | 2022-03-01 15:10 | NUR ---
pt continues with bear hugger in place, no sign of grimace, wakes to voice
--- NOTE | 2022-03-01 16:30 | NUR ---
US of LE finished, tube feed started at 20 ml/hr, pt with no sign of distress or grimace
[2022-03-02] VITALS (47 sets, daily range): BP systolic 113–148; BP diastolic 67–92
--- NOTE | 2022-03-02 01:00 | NUR ---
assessed pt had vomitted in highfowler i cleaned him and hold his tube feed, will notified day shift RN to notified radiology for a abdoment x ray to veryfied placement
--- NOTE | 2022-03-02 06:23 | NUR ---
pt hemodinamic stable, calm, resptrain, feed hold, bed hoger in place, propofol at 50, will give report to in coming rn to continue intervention
[2022-03-02 06:33] LABS: BASO% 0.1 % (0-3); IMMATURE GRANULOCYTES 0.4 % (0.0-5.0); LYMPH% 3.9 % (15-41); MEAN CELL VOLUME 96.4 fL CALC (80.0-100.0); MEAN CORPUSCULAR HGB CONC 32.2 g/dL CAL (32.0-36.0); MONO% 3.3 % (2-13); NEUT# 7.87 thou/uL (1.82-7.42); NEUT% 92.3 % (42-76); RED BLOOD COUNT 3.29 mill/uL (4.70-6.10); RED CELL DISTRI WIDTH 16.1 % (11.5-15.5)
[2022-03-02 06:37] LABS: HEMATOCRIT 31.7 % (39.0-50.0); HEMOGLOBIN 10.2 g/dl (14.0-18.0)
[2022-03-02 06:49] LABS: ALBUMIN 3.4 g/dL (3.2-5.0); MAGNESIUM 2.4 mg/dL (1.6-2.3); POTASSIUM 4.9 mmol/l (3.5-5.1); TOTAL PROTEIN 6.9 g/dL (6.3-8.2)
[2022-03-02 07:12] LABS: BILIRUBIN, TOTAL 0.3 mg/dL (0.0-1.4); CREATININE 5.4 mg/dL (0.7-1.3)
--- NOTE | 2022-03-02 08:52 | NUR ---
FIO2 DECREASED TO 40%
--- NOTE | 2022-03-02 10:54 | NUR ---
S: PERRY AYALA is a 56 M who presents with pneumonia. He has a history of COPD and Heart Failure. All medications in patient's chart were reviewed. O: VS: BP 134/82mmHg, P 79bpm, RR 15bpm,T 97.0F W 196kg, HT 69inches, Scr=4.9mg/dL,CrCl= 25.8ml/min A: Blood culture shows 1 of 2 sets growing Staphylcoccus Epidermidis which is sensitive to Vancomycin. P: Patient is on Levaquin 750mg IV Q48H. Vancomycin ordered for pharmacy to dose. Start Vancomycin 1500mg IV Q48H. Vancomycin trough is drawn before the 3rd dose on 03/05/2022 @1230 . Vancomycin goal trough is between 15-20 mcg/ml. Pharmacy will follow and or advise on antibiotics use as needed.
--- NOTE | 2022-03-02 12:29 | NUR ---
O2 SAT DROPPED TO 87%. FIO2 INCREASED TO 50%
--- NOTE | 2022-03-02 16:03 | NUR ---
nurse yoandy notified me of setitngs changes on vent FI02 increased to 60% rate increased to 60% peep increased to 10--also order placed by rn for repeat abg at 7pm
[2022-03-02 16:23] LABS: ALBUMIN 3.3 g/dL (3.2-5.0); POTASSIUM 4.9 mmol/l (3.5-5.1)
[2022-03-02 16:32] LABS: CREATININE 5.5 mg/dL (0.7-1.3)
[2022-03-03] VITALS (26 sets, daily range): BP systolic 112–161; BP diastolic 63–94
[2022-03-03 05:54] LABS: HEMATOCRIT 25.8 % (39.0-50.0); HEMOGLOBIN 8.6 g/dl (14.0-18.0); MEAN CELL VOLUME 92.8 fL CALC (80.0-100.0); MEAN CORPUSCULAR HGB 30.9 pG CALC (26.0-32.0); MEAN CORPUSCULAR HGB CONC 33.3 g/dL CAL (32.0-36.0); RED BLOOD COUNT 2.78 mill/uL (4.70-6.10); RED CELL DISTRI WIDTH 16.5 % (11.5-15.5)
[2022-03-03 06:26] LABS: ALBUMIN 3.3 g/dL (3.2-5.0); BILIRUBIN, TOTAL 0.3 mg/dL (0.0-1.4); MAGNESIUM 2.2 mg/dL (1.6-2.3); TOTAL PROTEIN 6.6 g/dL (6.3-8.2)
--- NOTE | 2022-03-03 06:27 | NUR ---
PT HEMODYNAMIC STABLE, PT CURRENTLY BREATHING WITH ASSESORY MUSCLE, IN-LINE SUCTION AND LAVAGE, SPUTUM IS PINKAGE (BLOODY) AND THICK, STANDING CXR ORDER FOR THE AM, 650 CC OUTPUT OF URINE, -3 of RASS, NOT VENT CHANGE. WILL CONTINUE TO MONITOR AND GIVE REPORT TO IN-COMING RN TO CONTINUE PLAN OF CARE.
[2022-03-03 06:40] LABS: CREATININE 5.4 mg/dL (0.7-1.3)
--- NOTE | 2022-03-03 07:12 | NUR ---
ET TUBE ADVANCED 2CM PER RADIOLOGY. NOW 29C @ LIP.
--- NOTE | 2022-03-03 08:49 | NUR ---
FIO2 DECREASED TO 60%
--- NOTE | 2022-03-03 09:34 | NUR ---
RN INCREASED FIO2 TO 65%
[2022-03-04] VITALS (97 sets, daily range): BP systolic 113–168; BP diastolic 60–85
--- NOTE | 2022-03-04 | NUR ---
REPORT RECIEVED AT 1900 FROM FREDA RN. PT STABLE ON VENT. SEDATED, NAD. PT RESTING AT THIS TIME, VSS.
[2022-03-04 06:29] LABS: BASO% 0.1 % (0-3); HEMOGLOBIN 8.8 g/dl (14.0-18.0); IMMATURE GRANULOCYTES 0.5 % (0.0-5.0); LYMPH% 5.3 % (15-41); MEAN CELL VOLUME 91.9 fL CALC (80.0-100.0); MEAN CORPUSCULAR HGB 32.4 pG CALC (26.0-32.0); MEAN CORPUSCULAR HGB CONC 35.2 g/dL CAL (32.0-36.0); MONO% 2.2 % (2-13); NEUT# 7.95 thou/uL (1.82-7.42); NEUT% 91.9 % (42-76); RED BLOOD COUNT 2.72 mill/uL (4.70-6.10); RED CELL DISTRI WIDTH 16.8 % (11.5-15.5)
--- NOTE | 2022-03-04 07:00 | NUR ---
REPORT RECEIVED FROM FURNACE MECHANIC - PT CURR SATTING 92% AFTER DEEP SUCTIONING AND CXR - RESPIRATORY CALLED TO VERIFY TUBE PLACEMENT, TUBE CANNOT BE ADVANCED ANYMORE - PT CURR AT 29 AT THE [facility] - VSS - PT TEMP 98.6 - VENT SETTINGS ARE 60% FIO2, TV 500, RR 28, PEEP 8- WILL MONITOR
[2022-03-04 07:14] LABS: ALBUMIN 2.9 g/dL (3.2-5.0); BILIRUBIN, TOTAL 0.4 mg/dL (0.0-1.4); POTASSIUM 4.6 mmol/l (3.5-5.1); TOTAL PROTEIN 5.9 g/dL (6.3-8.2)
[2022-03-04 07:28] LABS: CREATININE 5.3 mg/dL (0.7-1.3)
--- NOTE | 2022-03-04 09:01 | NUR ---
No change in patient status - drip remains the same - vent settings are the same - pt currently satting 93% - no s/s distress
--- NOTE | 2022-03-04 11:05 | NUR ---
Pt resting in bed on vent - same settings, pt stable - temp 98.0 - no concerns at this time
--- NOTE | 2022-03-04 13:50 | NUR ---
Pt resting in bed - no changes on vent settings - pt diuersing adequately - updated mother via telephone - pt stable at this time - will monitor
--- NOTE | 2022-03-04 15:00 | NUR ---
NO CHANGE - PT STABLE - NNO - WILL CONT TO MONITOR
--- NOTE | 2022-03-04 15:02 | NUR ---
Dr. Guzman did tele consult - reccomendations given
--- NOTE | 2022-03-04 17:09 | NUR ---
PT STABLE ON CURRENT VENT SETTINGS, STILL ON PROPOFOL GTT - DIURESING ADEQUATELY - NO CONCERNS AT THIS TIME
[2022-03-05] VITALS (49 sets, daily range): BP systolic 91–141; BP diastolic 50–75
--- NOTE | 2022-03-05 | NUR ---
PT SEDATED AND VENTED, NO CHANGES. VSS. NAD.
[2022-03-05 04:17] LABS: BASO% 0.1 % (0-3); HEMATOCRIT 24.1 % (39.0-50.0); HEMOGLOBIN 8.2 g/dl (14.0-18.0); IMMATURE GRANULOCYTES 0.8 % (0.0-5.0); LYMPH% 3.6 % (15-41); MEAN CELL VOLUME 94.1 fL CALC (80.0-100.0); MONO% 2.5 % (2-13); NEUT# 7.03 thou/uL (1.82-7.42); PLATELET COUNT 120 thou/uL (130-400); RED BLOOD COUNT 2.56 mill/uL (4.70-6.10); RED CELL DISTRI WIDTH 16.9 % (11.5-15.5)
[2022-03-05 05:26] LABS: ALBUMIN 2.8 g/dL (3.2-5.0); BILIRUBIN, TOTAL 0.4 mg/dL (0.0-1.4); MAGNESIUM 2.1 mg/dL (1.6-2.3); POTASSIUM 5.1 mmol/l (3.5-5.1); TOTAL PROTEIN 5.6 g/dL (6.3-8.2)
[2022-03-05 06:00] LABS: CREATININE 5.9 mg/dL (0.7-1.3)
[2022-03-05 07:43] LABS: C-REACTIVE PROTEIN 30.9 mg/dL (0-0.9)
--- NOTE | 2022-03-05 08:00 | NUR ---
Report received from operation shift supervisor - pt currently on vent at 60% FIO2, TV 500, RR 28, PEEP 10 satting 93% - no s/s distress - full assessment completed and will chart - BP stable - will monitor
--- NOTE | 2022-03-05 09:36 | NUR ---
No changes - pt stable at this time - per nephro probably going to try and get a line placed for dialysis as CR/BUN still increasingly CH - awaiting orders - same vent settings - will monitor
--- NOTE | 2022-03-05 11:20 | NUR ---
Dr. Sifuentes did rounds - NNO - pt on same vent settings- still awaiting a dialysis cath at some point today - will monitor
--- NOTE | 2022-03-05 13:04 | NUR ---
Pt stable - No changes at this time - will cont to monitor
--- NOTE | 2022-03-05 16:16 | NUR ---
Pt still waiting on dialysis line to be placed by Dr. Gillespie - no changes in pt vent settings - satting 94% - updated family via phone call today - will monitor
--- NOTE | 2022-03-05 17:03 | NUR ---
No changes, NNO
[2022-03-06] VITALS (21 sets, daily range): BP systolic 79–130; BP diastolic 30–69
[2022-03-06 05:30] LABS: ALBUMIN 3.1 g/dL (3.2-5.0)
--- NOTE | 2022-03-06 05:51 | NUR ---
PT HAS PRESENTED STABLE THROUGHOUT THE NIGHT UNTIL 0230-0295 I STARTED LEVOPHEN BECAUSE EVEN WITH TITRATION OF PROPOFOL DOWN, BLOOD PRESSURE CONT. TO DROP TO MAP BELOW 65. AT [phone], I NOTED A RHYTHM CHANGE ON THE MONITOR. RHYTHM CHANGE PRINTED AND IN CHART. ALSO HAD TO GET RT TO TO INCREASE FI02 TO 85% BECAUSE SATS WERE IN THE MID 80'S FROM BASELINE OF 91-92%. ASKED RT TO GET EKG WHILE GETTING BLOOD GAS, BUT BLOOD GAS COME BACK PH 6.97, CO2 54.1, BICARB 10.5. CALLED DR RAE TO REPORT ABG AND EKG CHANGES. HE TOLD ME TO CALL FAMILY IN AND ASK THEM ABOUT CODE STATUS. GOT AHOLD OF MOTHER AND TOLD HER WHAT WAS GOING ON AND ASKED HER ABOUT CODE STATUS, SHE SAID SHE LIVED HERE IN [place] AND WAS COMING UP NOW. MOTHER WAS ON HER WAY AND I CALLED HER BACK BECAUSE PATIENTS BLOOD PRESSURE STARTED TO DROP WITH LEVO MAXED OUT. SHE THEN MADE THE DECISION TO MAKE PATIENT A DNR. SECOND NURSE STEVIE MURRY VERIFIED. CALLED DR RAE AND ALSO GOT AN ORDER FOR A DNR FROM HIM WELL. DR RAE TOLD ME TO CALL NEPHROLOGY AND LET MD KNOW, BOTH MD'S AWARE NOW. MOTHER IS HERE AT BEDSIDE. PTS HEART STOPPED AT 0605. MOTHER, PEGGY SIMONS, BOTH MD'S AWARE. YELLOW DNR SIGNED AND FILLED OUT. EKG'S IN CHART. PEGGY SIMONS CALLED.
[2022-03-06 06:12] LABS: CREATININE 5.8 mg/dL (0.7-1.3)
[2022-03-06 06:13] LABS: POTASSIUM 6.4 mmol/l (3.5-5.1)
--- NOTE | 2022-03-06 07:54 | NUR ---
S: PERRY AYALA is a 56 M who presents with PNEUMONIA. He has a history of COVID 19 . All medications in patient's chart were reviewed. O: VS: BP 85/30, 85P , RR 28,T 96.8 W <165kg>, HT 69IN, Scr=5.8 ,CrCl= 20ml/min> A: Blood culture show CONTAMINATION P: Patient is on CEFEPIME 1 GRAM BID FLAGYL 500MG Q8H . Vancomycin ordered for pharmacy to dose. Start Vancomycin 1500MG IV Q48H. Vancomycin trough is drawn before the 3RD dose on 03/11/22 @1230 A HD CATH HAS BEEN PLACED, IF HD IS STARTED WE WILL NEED TO CHANGE TROUGH TIMING. Vancomycin goal trough is between <15-20 mcg/ml>. Pharmacy will follow and or advise on antibiotics use as needed.
--- NOTE | 2022-03-06 08:00 | NUR ---
0700-REPORT RECEIVED FROM NIGHT NURSE. 07-[employer] CALLED; SPOKE WITH MAKENZIE. REF ID: [id number]. PER MAKENZIE PATIENT IS NOT A CANDIDATE FOR [employer] DUE HIS POSITIVE COVID STATUS. OK TO RELEASE BODY. 0717-[facility] CALLED AND GIVEN PT INFORMATION. ETA OF 11A-12P FOR BODY HEALTH AND WELLNESS DIRECTOR. FAMILY NOTIFIED. 0730-ALL ATTACHMENTS REMOVED FROM BODY INCLUDING VENT, OG TUBE, 2 CENTAL LINES, 1 PERIPHERAL LINE, AND MCKEON CATHETER. POST MORTEM CARE PROVIDED.
--- NOTE | 2022-03-06 10:26 | NUR ---
[facility] AT BEDSIDE ALONG WITH PATIENT'S MOTHER.
--- NOTE | 2022-03-06 10:35 | NUR ---
BODY LEFT WITH [employer] AND [facility] AND MOTHER. BELONGINGS SENT WITH MOTHER INCLUDING WALLET.
== END 2022-03-06 10:35 | disposition expired | DRG 870 ==
LOC: ED 22:54 → ICU 02-28 01:05
PROVIDERS: Family Medicine; Internal Medicine; Internal Medicine Nephrology; Nurse Practitioner Family; ADMIT Internal Medicine; ATTEND Internal Medicine
PROC: 0T9B70Z Drainage of Bladder with Drainage Device, Via Natural or Artificial Opening (ICD-10-PCS; principal; 2022-02-28)
PROC: 5A1955Z Respiratory Ventilation, Greater than 96 Consecutive Hours (ICD-10-PCS; 2022-02-28)
PROC: XW033E5 Introduction of Remdesivir Anti-infective into Peripheral Vein, Percutaneous Approach, New Technology Group 5 (ICD-10-PCS; 2022-02-28)
PROC: 3E033XZ Introduction of Vasopressor into Peripheral Vein, Percutaneous Approach (ICD-10-PCS; 2022-02-28)
PROC: 0B21XEZ Change Endotracheal Airway in Trachea, External Approach (ICD-10-PCS; 2022-03-01)
PROC: 05HY33Z Insertion of Infusion Device into Upper Vein, Percutaneous Approach (ICD-10-PCS; 2022-03-01)
PROC: 06HY33Z Insertion of Infusion Device into Lower Vein, Percutaneous Approach (ICD-10-PCS; 2022-03-05)
DX: A41.89 Other specified sepsis (principal); I50.33 Acute on chronic diastolic (congestive) heart failure; J12.82 Pneumonia due to coronavirus disease 2019; U07.1 COVID-19; J96.22 Acute and chronic respiratory failure with hypercapnia; N17.0 Acute kidney failure with tubular necrosis; R65.21 Severe sepsis with septic shock; J96.21 Acute and chronic respiratory failure with hypoxia; J44.0 Chronic obstructive pulmonary disease with (acute) lower respiratory infection; I13.0 Hypertensive heart and chronic kidney disease with heart failure and stage 1 through stage 4 chronic kidney disease, or unspecified chronic kidney disease; Z68.44 Body mass index [BMI] 60.0-69.9, adult; J44.1 Chronic obstructive pulmonary disease with (acute) exacerbation; N18.4 Chronic kidney disease, stage 4 (severe); E87.1 Hypo-osmolality and hyponatremia; E87.20 Acidosis, unspecified; I48.91 Unspecified atrial fibrillation; I25.10 Atherosclerotic heart disease of native coronary artery without angina pectoris; E83.39 Other disorders of phosphorus metabolism; G47.33 Obstructive sleep apnea (adult) (pediatric); I95.9 Hypotension, unspecified; E86.9 Volume depletion, unspecified; E83.51 Hypocalcemia; E66.01 Morbid (severe) obesity due to excess calories; E78.5 Hyperlipidemia, unspecified; G89.4 Chronic pain syndrome; Z66 Do not resuscitate; Z95.5 Presence of coronary angioplasty implant and graft; Z98.84 Bariatric surgery status; Z86.14 Personal history of Methicillin resistant Staphylococcus aureus infection; Z79.01 Long term (current) use of anticoagulants
CPT/HCPCS: J0692; J1650; J2060; J3370; S0164